=== PATIENT | female | born 1950 | race Caucasian/White ===

== ENCOUNTER 2023-10-02 22:02 | Emergency (ER) | payer OTHER, SELFPAY ==
[2023-10-02 22:12] VITALS: BP 188/96
[2023-10-02 23:18] VITALS: BP 176/89; BMI 24.5
--- NOTE | 2023-10-02 23:27 | EDRN ---
Pt has allergies for which she is taking claritin and flonase daily. Pt's L ear has been blocked intermittently. Pt noted it was blocked again today and when she got up from the sofa, she felt very dizzy. Pt denies pain in left ear but says there
is a faint 'white noise sound like a TV left on.' Pt's nose has been stuffed, then she sneezes and says she blows her nose a lot and the stuffiness gets worse. Pt denies sore throat, ear drainage, post nasal drip, fever/chills/cough.
[2023-10-02 23:30] VITALS: BP 172/73
[2023-10-03] VITALS: BP 161/72
[2023-10-03 00:30] VITALS: BP 139/78
--- NOTE | 2023-10-03 00:53 | ED.GENMED ---
History of Present Illness
General
Chief Complaint: Ear Problem
Source: patient
Exam Limitations: none
Time Seen by Provider: 10/03/23 00:21
Nursing documentation reviewed up to this point in time: agreed with
Travel History
Have you had any contact with someone who has COVID-19?: No
Do you have any symptoms of coronavirus? Fever > 100 degrees, chills, cough, shortness of breath, sore throat, loss of taste or smell, muscle aches, or headache?: No
History of Present Illness
History of Present Illness:
Pt presents to ED secondary to intermittent episodes of dizziness when standing up since this morning. Of note, patient has had nasal congestion and post nasal drip along with frontal head pressure x 1 week. Pt also noted decreased hearing in her
left ear x 2 days. Denies blurred vision. Denies neck pain. Denies nausea/vomiting. Denies loss of sensation/weakness. Denies difficulty with speech. Denies difficulty with ambulation. Denies recent change in medications/diet.
Past History
Past History
ED Past Medical History: HTN and Hypercholesterolemia
ED Past Surgical History: None
Social History
Tobacco: Smoker
Alcohol: None
Personal:
Living: with family
Review of Systems
Review of Systems
Allergies reviewed?: Yes
All Other Systems: ROS reviewed and negative except as documented in HPI and ROS
Constitutional: Reports no symptoms
EENT: Reports runny nose and other (nasal congestion, post-nasal drip, decreased hearing)
Respiratory: Reports no symptoms
Cardiac: Reports no symptoms
ABD/GI: Reports no symptoms
Musculoskeletal: Reports no symptoms
Skin: Reports no symptoms
Neurological: Reports no symptoms
Phy Exam
Physical Exam
Physical Exam:
General: well nourished female, in no acute distress. afebrile
Heent: nc/at. eomi. no nystagmus.
Lungs: cta.
Heart: rrr. no murmur.
Abd: soft, nontender
Neuro: aao x 3. no focal sensory/motor deficit. normal speech. normal gait.
Skin: warm to touch. no rash
Psych: pleasant and cooperative.
Course
Orders/Labs/Results
Orders:
Orders
10/03/23 00:53
Prednisone [Deltasone] 50 mg PO NOW STA
Vital Signs
Initial and Last Documented VS:
Initial Vital Signs
Temp Pulse Resp BP Pulse Ox
97.8 F 82 22 188/96 97
10/02/23 22:12 10/02/23 22:12 10/02/23 22:12 10/02/23 22:12 10/02/23 22:12
Last Documented Vital Signs
Temp Pulse Resp BP Pulse Ox
97.8 F 77 16 139/78 94
10/02/23 22:12 10/03/23 00:30 10/02/23 23:18 10/03/23 00:30 10/03/23 00:30
MDM/Problems Addressed
MDM/Problems Addressed:
Pt able to ambulate independently with steady gait, without any sensation of dizziness. Pt's symptoms likely mainly driven by disequilibrium with ongoing upper respiratory symptoms. As such, after discussion, decision made to discharge patient home
on short course of prednisone, along with recommendation for close ENT/pcp f/u. Will return with worsening symptoms.
*Critical Care Note
Total Time (30-74mins, 75-104mins- exclusive of procedures): Not Applicable
ED Attending Note
-
Portions of this chart may have been created with voice recognition software.� Occasional wrong word or��sound alike� substitutions may have occurred due to the inherent limitations of voice recognition software.
Discharge Plan
Departure
Patient Disposition: Home (Routine Discharge)
Date of Disposition: 10/03/23
Time of Disposition: 00:53
Patient with high blood pressure during this ER visit?: Yes
Discharge Problem:
Dizziness, Nasal congestion
Instructions: Dizziness
Prescriptions:
New
prednisone 50 mg tablet
50 mg PO DAILY Qty: 2 0RF
No Action
losartan 50 MG tablet
50 mg PO DAILY
amlodipine 5 MG tablet
5 mg PO DAILY
latanoprost 0.005 % Drops
1 drp BOTH EYES DAILY
atorvastatin 40 mg Tablet
40 mg PO DAILY
alendronate [Fosamax] 70 mg Tablet
70 mg PO WEN
metoprolol succinate 25 mg Tablet Extended Release 24 Hr
25 mg PO DAILY
fluticasone propionate [Flonase] 50 mcg/actuation [place],Suspension
2 spray INTRANASAL DAILY
loratadine [Claritin] 10 mg Tablet
10 mg PO DAILY
cholecalciferol (vitamin D3) [Vitamin D3] 50 mcg (2,000 unit) Capsule
50 mcg PO DAILY
Trelegy Ellipta 100-62.5-25 mcg Blister With Device
1 inh INHALATION DAILY
Referrals:
Braden Charles MD [Family Provider] -
Activity Restrictions/Additional Instructions:
As discussed, please follow-up with your primary care physician for reevaluation next week. Your prescription has been sent electronically to [facility] in [place].
Interventions
Interventions:
*Risk Screen - Suicide Last Done: 10/02/23 22:12
*General Assessment Last Done: 10/02/23 23:18
*Neglect/Abuse Screening Last Done: 10/02/23 22:12
*ED COVID-19 Vaccine History Last Done: 10/02/23 23:02
*Nursing Disposition Last Done: 10/03/23 01:07
ED- Neurological Assessment Last Done: 10/02/23 23:18
Discharge Date and Time
Discharge Date/Time: 10/03/23 01:07
Print Language: [place]
[2023-10-03] MEDS: DELTASONE 50 MG PO (01:05)
== END 2023-10-03 01:07 | disposition home or self-care (01) ==
LOC: EMR 22:02
PROVIDERS: EMERGENCY PHYSICIAN Emergency Medicine; FAMILY PHYSICIAN Internal Medicine
DX: R42 Dizziness and giddiness (principal); R09.81 Nasal congestion; I10 Essential (primary) hypertension; E78.00 Pure hypercholesterolemia, unspecified; F17.200 Nicotine dependence, unspecified, uncomplicated
CPT/HCPCS: 99282

== ENCOUNTER → 2024-01-20 13:41 | Outpatient (REF) | payer OTHER, SELFPAY | LOC: WDC 13:41 | PROVIDERS: ATTENDING PHYSICIAN Obstetrics & Gynecology; FAMILY PHYSICIAN Internal Medicine | DX: Z12.31 Encounter for screening mammogram for malignant neoplasm of breast (principal) | CPT/HCPCS: 77063; 77067 ==

== ENCOUNTER → 2024-05-09 09:48 | Outpatient (REF) | payer OTHER, SELFPAY | LOC: RAD 09:48 | PROVIDERS: ATTENDING PHYSICIAN Internal Medicine | DX: Z87.891 Personal history of nicotine dependence (principal) | CPT/HCPCS: 71271 ==

== ENCOUNTER → 2025-01-25 13:17 | Outpatient (REF) | payer OTHER, SELFPAY | LOC: WDC 13:17 | PROVIDERS: ATTENDING PHYSICIAN Obstetrics & Gynecology; FAMILY PHYSICIAN Internal Medicine | DX: Z12.31 Encounter for screening mammogram for malignant neoplasm of breast (principal) | CPT/HCPCS: 77063; 77067 ==